=== PATIENT | female | born 1960 | race Caucasian/White ===

== ENCOUNTER 2017-11-08 19:23 | Emergency (ER) | payer OTHER ==
[2017-11-08 19:29] VITALS: BP 117/41
--- NOTE | 2017-11-08 19:36 | ED Physician Documentation ---
PD HPI UPPER EXT INJURY - Stated complaint Stated Complaint: FALL,RT WRIST INJ - Chief complaint Chief Complaint: Ext Problem - History obtained from History obtained from: Patient - History of Present Illness Location: Right, Wrist (FOOSH injury while playing racquetball today, she is right-handed. Has moderate pain at the distal radius no other injuries. Declines pain medication.) Review of Systems Constitutional: reports: Reviewed and negative Nose: reports: Reviewed and negative Cardiac: reports: Reviewed and negative PD PAST MEDICAL HISTORY - Present Medications Home Medications: Ambulatory Orders Medication Instructions Recorded Confirmed [place] 600 mg PO DAILY PM 11/08/17 11/08/17 - Allergies Allergies/Adverse Reactions: Allergies Allergy/AdvReac Type Severity Reaction Status Date / Time No Known Drug Allergies Allergy Verified 11/08/17 19:29 PD ED PE NORMAL - Vitals Vital signs reviewed: Yes - General General: Alert and oriented X 3, No acute distress - Extremities Extremities: Other (Slightly tender at the right distal radius with potential mild very dorsal very mild dorsal deformity. Good range of motion though and NVI in the hand.) - Neuro Neuro: Alert and oriented X 3, Normal speech Results - Vitals Vitals: Vital Signs - 24 hr 11/08/17 19:26 Temperature 36.7 C Heart Rate 69 Respiratory 16 Rate Blood Pressure 117/41 L O2 Saturation 97 Oxygen O2 Source Room air Procedures - Splint (location) R wrist Splint applied by: Tech Type of splint: Fiberglass, Short arm, Volar cock up Other: Patient tolerated well, No complications, Neurovascular intact Departure - Departure Disposition: 01 Home, Self Care Clinical Impression: Fracture of right distal radius Qualifiers: Encounter type: initial encounter Fracture type: closed Fracture morphology: unspecified fracture morphology Qualified Code(s): S52.501A - Unspecified fracture of the lower end of right radius, initial encounter for closed fracture Condition: Good Record reviewed to determine appropriate education?: Yes Instructions: ED Fx Forearm Radius Ulna No Redu Requ Follow-Up: [facility] [Provider Group] Comments: Keep the splint on and dry, follow-up with the orthopedic surgeon in a week, call tomorrow for an appointment. Return if worse. Ice it and elevate it, Tylenol as needed for pain. Discharge Date/Time: 11/08/17 20:22
--- NOTE | 2017-11-08 20:14 | XRAY Preliminary Report ---
Exam: XR WRIST 4 VIEW RT IMPRESSION: Nondisplaced dorsal distal radius fracture. [facility] SITE ID: [id number]
--- NOTE | 2017-11-08 20:17 | XRAY Report ---
EXAM: RIGHT WRIST RADIOGRAPHY EXAM DATE: 11/08/2017 07:47 PM. CLINICAL HISTORY: Trauma. COMPARISON: None. TECHNIQUE: 4 views. FINDINGS: Bones: There is buckling of the cortex of the dorsal distal radius with a subtle cortical step-off. N o significant angulation. Joints: Normal. No subluxations. Soft Tissues: Normal. No soft tissue swelling. IMPRESSION: Nondisplaced dorsal distal radius fracture. [facility] Referring Provider Line: [phone] SITE ID: [id number]
== END 2017-11-08 20:22 | disposition home or self-care (01) ==
LOC: ED 19:23
DX: S52.501A Unspecified fracture of the lower end of right radius, initial encounter for closed fracture (principal); W18.30XA Fall on same level, unspecified, initial encounter; Y93.73 Activity, racquet and hand sports
CPT/HCPCS: 29125; 99282; 99283

== ENCOUNTER 2018-02-13 08:02 | Outpatient (CLI) | payer OTHER ==
--- NOTE | 2018-02-14 11:09 | DEXA Report ---
DEXA SCAN: 02/13/2018 CLINICAL INDICATION: Postmenopausal. TECHNIQUE: Dual energy x-ray absorptiometry (DXA) was performed on a [employer] system. Regions measured are the AP spine, femoral neck, and, if needed, forearm. COMPARISON: None. In accordance with the International Society for Clinical Densitometry (ISCD) guidelines, data from previous exams may be reanalyzed using current recommendations and techniques. This is done to allow a more accurate basis for comparison with the current study. FINDINGS The data for the lumbar spine is as follows: REGION BMD (g/cm/cm) T-SCORE Z-SCORE L1 0.977 -1.3 0.0 L2 1.046 -1.3 0.0 L3 1.105 -0.8 0.5 L4 1.120 -0.7 0.6 TOTAL 1.069 -0.9 0.3 NOTE: All evaluable vertebrae are used for classification. The data for the hip is as follows: REGION BMD (g/cm/cm) T-SCORE Z-SCORE Neck 1.080 0.3 1.6 TOTAL 1.100 0.7 1.7 NOTE: The femoral neck or total proximal femur, whichever is lowest, is used for classification. IMPRESSION WHO CLASSIFICATION BASED ON THE INTERNATIONAL REFERENCE STANDARD IS NORMAL. FRACTURE RISK IS NOT INCREASED. RECOMMENDATION: Patients with diagnosis of osteoporosis or osteopenia should have regular bone mineral density assessment. For those eligible for Medicare, routine testing is allowed once every 2 years. Testing frequency can be increased for patients who have rapidly progressing disease or for those who are receiving medical therapy to restore bone mass. COMMENT World Health Organization (WHO) definitions for osteoporosis and osteopenia: NORMAL BMD: T-score at 1.0 or higher, fracture risk is low. OSTEOPENIA BMD: T-score between 1.0 and -2.5, fracture risk is increased. OSTEOPOROSIS BMD: T-score at 2.5 or lower, fracture risk high. National Osteoporosis Foundation recommends: 1. Obtain adequate dietary calcium (at least 1200 mg per day) and vitamin D (400 -800 international units per day). 2. Participate, as appropriate, in regular weightbearing and muscle- strengthening exercise. 3. Avoid tobacco use and reduce alcohol and caffeine intake. 4. For more detailed information see the website at www.NOF.org. TD: 02/13/2018 09:29 JO-ANN
== END 2018-02-13 08:03 | disposition home or self-care (01) ==
LOC: DI 08:02
DX: M85.80 Other specified disorders of bone density and structure, unspecified site (principal)
CPT/HCPCS: 77080

== ENCOUNTER 2018-11-26 07:31 | Emergency (ER) | payer OTHER ==
[2018-11-26 07:45] VITALS: BP 108/76
--- NOTE | 2018-11-26 08:01 | ED Physician Documentation ---
PD HPI UPPER EXT INJURY - Stated complaint Stated Complaint: R ARM PX - Chief complaint Chief Complaint: Ext Problem - History obtained from History obtained from: Patient - History of Present Illness Location: Right, Wrist Type of injury: Blunt / blow Where injury occurred: Home Timing - onset: How many days ago (2) Similar symptoms before: Diagnosis (History of right distal radius fracture one year ago.) - Additonal information Additional information: The patient is a 58-year-old female who presents with "burning pain" of her right wrist. The pain started 2 days ago after she was playing with her granddaughter, and her granddaughter ran into her right open hand with full force. She has a history of right distal radius fracture 1 year ago. She has not previously experienced this burning type pain. She is right-hand dominant. Review of Systems Constitutional: denies: Fever Skin: denies: Rash Musculoskeletal: reports: Joint pain (right wrist). 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 : None HEENT: None Psych: Bipolar disorder Musculoskeletal: None Derm: None - Past Surgical History Past Surgical History: Yes HEENT: Detached retina repair - Present Medications Home Medications: Ambulatory Orders Medication Instructions Recorded Confirmed [place] 600 mg PO DAILY PM 11/08/17 11/08/17 - Allergies Allergies/Adverse Reactions: Allergies Allergy/AdvReac Type Severity Reaction Status Date / Time No Known Drug Allergies Allergy Verified 11/26/18 07:45 - Social History Does the pt smoke?: No Smoking Status: Never smoker Does the pt drink ETOH?: No Does the pt have substance abuse?: No - Immunizations Immunizations are current?: Yes PD ED PE NORMAL - Vitals Vital signs reviewed: Yes (normal) - General General: Alert and oriented X 3, Well developed/nourished - HEENT HEENT: Atraumatic - Respiratory Respiratory: No respiratory distress - Derm Derm: No rash - Extremities Extremities: No deformity, Other (There is no significant tenderness to palpation of the wrist, on either the radial or ulnar side. She has full flexion, extension, supination, and pronation of the wrist, with minimal discomfort. There is no discomfort with axial loading on the thumb. Distal neurovascular is intact.) - Neuro Neuro: Alert and oriented X 3, No motor deficit, No sensory deficit Results - Vitals Vitals: Vital Signs - 24 hr 11/26/18 07:40 Temperature 35.7 C L Heart Rate 61 Respiratory 14 Rate Blood Pressure 108/76 O2 Saturation 96 Oxygen O2 Source Room air - Rads (name of study) right wrist Radiology: Prelim report reviewed, EMP read contemporaneously, See rad report (No acute osseous abnormality.) PD MEDICAL DECISION MAKING - ED course Complexity details: reviewed old records, reviewed results, re-evaluated patient, considered differential, d/w patient ED course: The patient's presentation is most consistent with a brain of the left wrist. There is no evidence of osseous abnormality on radiographic imaging. I discussed with her the expected course of healing, symptomatic treatment and outpatient follow-up, as well as potentially worrisome signs or symptoms that should prompt reevaluation in the emergency department. Departure - Departure Disposition: 01 Home, Self Care Clinical Impression: Strain of right wrist Qualifiers: Encounter type: initial encounter Qualified Code(s): S66.911A - Strain of unspecified muscle, fascia and tendon at wrist and hand level, right hand, initial encounter Condition: Stable Instructions: ED Sprain Wrist Follow-Up: Dl Peters DO [Physician No Access] - Comments: You can use Tylenol or ibuprofen if needed for pain in your wrist. Let pain be your guide to activity level. Follow-up with your primary physician or return to the emergency department if you develop increasing pain, or if not starting to improve within 2 weeks. Discharge Date/Time: 11/26/18 08:37
--- NOTE | 2018-11-26 08:23 | XRAY Report ---
Reason: right wrist pain; h/o distal radius fx one yr. ago Procedure Date: 11/26/2018 Accession Number: [id number] / [id number] Procedure: XR - Wrist 3 View RT CPT Code: FULL RESULT: EXAM: RIGHT WRIST RADIOGRAPHY EXAM DATE: 11/26/2018 08:07 AM. CLINICAL HISTORY: Right wrist pain; h/o distal radius fx one yr. ago. COMPARISON: WRIST 4 VIEW RT 11/08/2017 7:47 PM. TECHNIQUE: 3 views. FINDINGS: Bones: No acute fractures or bone lesions. Old healed fracture deformity of the dorsal distal radius. Bones appear osteopenic. Joints: Unremarkable. Soft Tissues: Unremarkable. IMPRESSION: 1. No acute osseous abnormality. [facility]
== END 2018-11-26 08:37 | disposition home or self-care (01) ==
LOC: ED 07:31
DX: S66.911A Strain of unspecified muscle, fascia and tendon at wrist and hand level, right hand, initial encounter (principal); W50.0XXA Accidental hit or strike by another person, initial encounter; Y93.89 Activity, other specified; Y92.009 Unspecified place in unspecified non-institutional (private) residence as the place of occurrence of the external cause
CPT/HCPCS: 99282; 99283

== ENCOUNTER 2022-03-23 07:48 | Outpatient (CLI) | payer OTHER ==
--- NOTE | 2022-03-23 12:34 | XRAY Report ---
PROCEDURE: Pelvis 1 View INDICATIONS: LEFT HIP PAIN TECHNIQUE: AP view(s) of the pelvis acquired. COMPARISON: March 01, 2022 FINDINGS: BONES/JOINTS: No acute, displaced fracture. No widening of the pubic symphysis. The sacroiliac joints are symmetric. The femoral heads are normal ly seated within the acetabulum. Mild osteophytosis about the left greater trochanter. SOFT TISSUES: No focal abnormality. IMPRESSION: 1.No acute osseous abnormality of the pelvis. Reviewed by: Abundio Kwon MD on 03/23/2022 12:33 PM PDT Approved by: Abundio Kwon MD on 03/23/2022 12:33 PM PDT Station ID: [id number]
== END 2022-03-23 23:59 | disposition home or self-care (01) ==
LOC: DI.WOS 07:48
PROVIDERS: ATTEND Physician Assistant
DX: M25.552 Pain in left hip (principal)

== ENCOUNTER 2024-06-20 08:15 | Outpatient (CLI) | payer MEDICARE, OTHER ==
[2024-06-20 12:21] LABS: BASOPHILS # (AUTO) 0.1 10^3/uL (0.0-0.1); BASOPHILS % (AUTO) 0.8 %; EOSINOPHILS # (AUTO) 0.3 10^3/uL (0.0-0.7); EOSINOPHILS % (AUTO) 3.7 %; HCT - HEMATOCRIT 40.3 % (37.0-47.0); HGB - HEMOGLOBIN 13.3 g/dL (12.0-16.0); LYMPHOCYTES # (AUTO) 1.2 10^3/uL (1.5-3.5); LYMPHOCYTES % (AUTO) 17.2 %; MEAN CORPUSCULAR VOLUME 96.9 fL (81.0-99.0); MEAN PLATELET VOLUME 9.2 fL (7.9-10.8); MONOCYTES # (AUTO) 0.5 10^3/uL (0.0-1.0); MONOCYTES % (AUTO) 7.2 %; NEUTROPHILS % (AUTO) 70.8 %; PLT - PLATELET COUNT 303 10^3/uL (130-450); RED BLOOD COUNT 4.16 10^6/uL (4.20-5.40); RED CELL DISTRIBUTION WIDTH 13.4 % (12.0-15.0); WHITE BLOOD COUNT 7.1 x10^3/uL (4.8-10.8)
[2024-06-20 12:53] LABS: ALBUMIN 4.6 g/dL (3.2-5.5); ALKALINE PHOSPHATASE 56 IU/L (42-121); ALT ALANINE AMINOTRANSFERASE 27 IU/L (10-60); AST ASPARTATE AMINOTRANSFERASE 22 IU/L (10-42); BILIRUBIN,TOTAL 1.2 mg/dL (0.2-1.0); BUN - BLOOD UREA NITROGEN 15 mg/dL (6-20); CALCIUM 10.4 mg/dL (8.5-10.3); CARBON DIOXIDE - CO2 27 mmol/L (21-32); CHLORIDE 108 mmol/L (101-111); CHOL/HDL RATIO 3.3 (<4.4); CHOLESTEROL 217 mg/dL; CREATININE 0.9 mg/dL (0.6-1.3); GFR - MDRD 63 (>89); GLUCOSE 91 mg/dL (74-104); HDL CHOLESTEROL 65 mg/dL; LDL CHOLESTEROL,CALCULATED 140 mg/dL; LDL/HDL RATIO 2.2 (<4.4); POTASSIUM 3.9 mmol/L (3.5-4.5); SODIUM 139 mmol/L (135-145); TOTAL PROTEIN 6.9 g/dL (6.4-8.9); TRIGLYCERIDES 61 mg/dL; VLDL CHOLESTEROL 12 mg/dL
[2024-06-20 13:10] LABS: LITHIUM 0.65 mmol/L
== END 2024-06-20 08:16 | disposition home or self-care (01) ==
LOC: LAB.N 08:15
PROVIDERS: ATTEND Physician Assistant
DX: F31.9 Bipolar disorder, unspecified (principal); Z79.899 Other long term (current) drug therapy
CPT/HCPCS: 36415; 80053; 80061; 80178; 83721; 84439; 84443; 85025